=== PATIENT | female | born 1935 | race Caucasian/White ===

== ENCOUNTER 2021-08-01 10:29 | Outpatient (CLI) | payer MEDICARE ==
[2021-08-01 11:57] LABS: Hemoglobin 14.7 g/dL (12.0-15.5); Mean Corpuscular HGB CONC 31.8 g/dL (32.0-36.0); Mean Corpuscular Hemoglobin 27.5 pg (27.0-33.0); Mean Corpuscular Volume 86.5 fl (81.6-98.3); Mean Platelet Volume 10.8 fl (7.4-10.4); Platelet Count 279 10x3/uL (150-450); RBC Distribution Width 14.5 % (11.5-14.5); Red Blood Cell (RBC) Count 5.34 10x6/uL (3.90-5.03); White Blood Cell (WBC) Count 6.9 10x3/uL (3.5-10.5)
[2021-08-01 12:25] LABS: Prothrombin Time 11.3 sec (9.5-12.1)
[2021-08-01 13:12] LABS: Anion Gap 16 mmol/L (10-20); BUN (Urea Nitrogen) 20 mg/dL (9.8-20.1); Calc. Creatinine Clearance 0 mL/min (70-130); Calcium 9.9 mg/dL (7.8-10.44); Carbon Dioxide 28 mmol/L (23-31); Chloride 101 mmol/L (98-107); Glucose 100 mg/dL (83-110); Potassium 4.9 mmol/L (3.5-5.1); Sodium 140 mmol/L (136-145)
[2021-08-01 22:59] LABS: SARS-CoV-2 PCR by NAA Not Detected (NotDetected)
== END 2021-08-01 10:30 | disposition home or self-care (01) ==
LOC: EDBD 10:29 → LABBT 10:29
PROVIDERS: ATTEND Internal Medicine Cardiovascular Disease
DX: Z01.812 Encounter for preprocedural laboratory examination (principal); I48.3 Typical atrial flutter; Z20.822 Contact with and (suspected) exposure to COVID-19
CPT/HCPCS: 80048; 85027; 85610; U0003; U0005

== ENCOUNTER 2021-08-04 06:03 | Day surgery (SDC) | payer MEDICARE ==
[2021-08-02 11:19] VITALS: BMI 26.5
[2021-08-04] MEDS ORDERED: Lidocaine 1% (PF) 30 ML VIAL ONE (07:09)
[2021-08-04] MEDS ORDERED: Heparin 25,000 units/D5W 0 ML ONE (07:09)
[2021-08-04] MEDS ORDERED: Heparin 10,000 UNITS/ 10 ML VIAL ONE (07:09)
[2021-08-04] MEDS ORDERED: Isoproterenol 0.2 MG/1 ML AMP ONE (07:09)
[2021-08-04] MEDS ORDERED: Fentanyl 100 MCG/2 ML VIAL ONE (07:50)
[2021-08-04] MEDS ORDERED: ePHEDrine 50 MG/ML VIAL ONE (07:50)
[2021-08-04] MEDS ORDERED: Glycopyrrolate 0.2 MG/ML 5 ML SYRINGE ONE (07:50)
[2021-08-04] MEDS ORDERED: Lidocaine 1% PF 5 ML VIAL ONE (07:50)
[2021-08-04] MEDS ORDERED: PHENYLEPHRINE-NS 100 MCG/ML 10 ML SYRINGE ONE (07:50)
[2021-08-04] MEDS ORDERED: PROPOFOL 200 MG/20 ML VIAL ONE (07:50)
[2021-08-04] MEDS ORDERED: Propofol 500 MG/50 ML VIAL ONE (08:44)
== END 2021-08-04 12:42 | disposition home or self-care (01) ==
LOC: EDBD → SDC 06:03
PROVIDERS: ATTEND Internal Medicine Cardiovascular Disease
PROC: 02583ZZ Destruction of Conduction Mechanism, Percutaneous Approach (ICD-10-PCS; principal; 2021-08-04)
PROC: 4A023FZ Measurement of Cardiac Rhythm, Percutaneous Approach (ICD-10-PCS; 2021-08-04)
PROC: 4A0234Z Measurement of Cardiac Electrical Activity, Percutaneous Approach (ICD-10-PCS; 2021-08-04)
PROC: 02K83ZZ Map Conduction Mechanism, Percutaneous Approach (ICD-10-PCS; 2021-08-04)
DX: I48.3 Typical atrial flutter (principal); I49.5 Sick sinus syndrome; I47.1 Supraventricular tachycardia; I44.7 Left bundle-branch block, unspecified; K21.9 Gastro-esophageal reflux disease without esophagitis; I10 Essential (primary) hypertension; E78.5 Hyperlipidemia, unspecified; Z87.891 Personal history of nicotine dependence; Z79.01 Long term (current) use of anticoagulants; Z79.899 Other long term (current) drug therapy
CPT/HCPCS: 93005; 93613; 93653; C1731; C1894; C2630; J1644; J2001; J2704; J3010; J3490